=== PATIENT | female | born 1955 | race Hispanic/Latino ===

== ENCOUNTER 2022-09-09 19:35 | Emergency (ER) | payer OTHER ==
[~2022-09-09] VITALS: Ht 152.4 cm; Wt 62.1 kg
[2022-09-09 19:53] VITALS: BP 143/57
[2022-09-09] MEDS ORDERED: LORA10TA7 PO (21:21)
[2022-09-09] MEDS ORDERED: FLUT16H NASAL (21:21)
== END 2022-09-09 21:40 | disposition home or self-care (01) ==
LOC: EDH 19:35
DX: J06.9 Acute upper respiratory infection, unspecified (principal); E11.9 Type 2 diabetes mellitus without complications; E78.00 Pure hypercholesterolemia, unspecified; I10 Essential (primary) hypertension; Z79.899 Other long term (current) drug therapy; Z20.822 Contact with and (suspected) exposure to COVID-19
CPT/HCPCS: 99283; 87635; 87880; 87804 ×2; C9803